=== PATIENT | male | born 1960 | race Caucasian/White ===

== ENCOUNTER 2017-01-14 03:21 | Emergency (ER) | payer MEDICARE ==
--- NOTE | ~2017-01-14 | EKG ---
PATIENT: GLENN MUNIZ UNIT #: [id number] Ventricular Rate: 88 BPM Atrial Rate: 88 BPM P-R Interval: 158 ms QRS Duration: 92 ms Q-T Interval: 356 ms QTC Calculation(Bezet): 430 ms P [place]: 45 degrees Calculated R [place]: 36 degrees Calculated T [place]: 36 degrees Diagnosis Line: Normal sinus rhythm Diagnosis Line: Possible Left atrial enlargement Diagnosis Line: Cannot rule out Anterior infarct , age Diagnosis Line: undetermined Diagnosis Line: Abnormal ECG Diagnosis Line: No previous ECGs available Diagnosis Line: Confirmed by DINA BEEBE MD ([id number]) on Diagnosis Line: 01/15/2017 8:46:44 AM INTERPRETING MD: ABIEL GARCIA
--- NOTE | ~2017-01-14 | CR72 ---
[facility] A Service of [facility] & [facility] RADIOLOGY TEXT RESULTS PATIENT: GLENN MUNIZ LOCATION: [facility] : 62 UNIT #: [id number] AGE: [address]: Mitchell Alexander SEX: M ORDER DR: [id number] [facility] [address] [place], [place] [address] [id number] E MR#: [id number] Acc #: [id number] NAME: GLENN MUNIZ : 1960 SEX: M STUDY DATE/TIME: 01/14/2017 4:40 UNIT: [facility] ROOM: STUDY DESCRIPTION: CR Chest Single View Portable Attending Physician: Mitchell Alexander Ordering Physician: Jigna Williamson M.D. Primary Care Physician: Joey Samuel M.D. MEDICAL IMAGING REPORT This report is preliminary unless electronic signature is present FINDINGS Single view chest INDICATION Chest pain for 2 weeks. Shortness of air. FINDINGS Single portable AP view of the chest compared to 07/24/2016. Heart and mediastinal contours normal. There is chronic interstitial opacities in both lungs. These are unchanged. No pneumothorax. IMPRESSION No new findings. Chronic interstitial opacities are similar to the prior study. Dictated by... Boyd Mancini M.D. THIS IS AN ELECTRONICALLY VERIFIED REPORT Boyd Mancini M.D. at 01/14/2017 9:07 PM MARIUM/anu TD: 01/14/2017 08:06 JOB #: [id number] MEDICAL IMAGING REPORT Page 1 of 1 COPY
[~2017-01-14 03:21] MED LIST: AMBIEN CR PO; FISH OIL 1,0001 CAP PO; INVEGA; LITHIUM PO; LORTAB 5/500 TA1 TA1 PO; METFORMIN PO; NEURONTIN PO; PRILOSEC PO; SEROQUEL PO
[2017-01-14 04:34] LABS: POC - CKMB 2.7 ng/mL (0.0-7.9); POC - TROPONIN <0.05 ng/mL (<=0.05)
[2017-01-14 05:15] LABS: BASOPHIL# 0.1 X10e3 (0-0.3); BASOPHIL% 0.6 % (0-2.5); EOSINOPHIL# 0.5 X10e3 (0-0.7); EOSINOPHIL% 4.5 % (0.0-7.0); HEMOGLOBIN 13.7 gm/dL (13.0-16.0); LYMPHOCYTE# 2.8 X10e3 (1.0-3.5); LYMPHOCYTE% 23.8 % (17.0-45.0); MEAN CELL VOLUME 94.5 FL (83-96); MEAN CORPUSCULAR HEMOGLOBIN 33.2 PG (28-34); MEAN CORPUSCULAR HGB CONC 35.2 g/dL (30-36); MEAN PLATELET VOLUME 7.7 FL (6.5-11.5); MONOCYTE# 0.8 X10e3 (0-1.0); MONOCYTE% 6.8 % (3.0-12.0); NEUTROPHIL# 7.6 X10e3 (1.5-7.1); NEUTROPHIL% 64.3 % (40-75); PLATELET COUNT 174 X10e3 (140-420); RED BLOOD COUNT 4.13 X10e (3.90-5.60); RED CELL DISTRIBUTION WIDTH 13.5 % (11.0-15.5); WHITE BLOOD COUNT 11.8 X10e3 (4.0-10.5)
[2017-01-14 05:16] LABS: DIFF IND NO
[2017-01-14 05:55] LABS: ALBUMIN SERUM 4.2 g/dL (3.5-5.0); BILIRUBIN,TOTAL 0.7 mg/dL (0.2-2.0); BUN/CREATININE RATIO 13.63; CALCIUM SERUM 8.8 mg/dL (8.4-10.2); CREATININE SERUM 1.1 mg/dL (0.6-1.4); GLOM FILT RATE Estimated 75.2 mL/min (>60); POTASSIUM 3.1 mmol/L (3.5-5.1); PROTEIN TOTAL SERUM 7.4 g/dL (6.0-8.3)
== END 2017-01-14 07:12 | disposition home or self-care (01) ==
LOC: CED 03:21
PROVIDERS: Nurse Practitioner
DX: S29.011A Strain of muscle and tendon of front wall of thorax, initial encounter (principal); F17.210 Nicotine dependence, cigarettes, uncomplicated; K21.9 Gastro-esophageal reflux disease without esophagitis; I10 Essential (primary) hypertension; E11.9 Type 2 diabetes mellitus without complications; Z79.4 Long term (current) use of insulin; Z79.84 Long term (current) use of oral hypoglycemic drugs; Z98.890 Other specified postprocedural states; X58.XXXA Exposure to other specified factors, initial encounter
CPT/HCPCS: 71010; 80053; 82553; 84484; 85025; 93005; 96374; 96375; 99284; J2270; J2405

== ENCOUNTER 2017-03-04 18:55 | Emergency (ER) | payer MEDICARE, OTHER ==
--- NOTE | ~2017-03-04 | EKG ---
PATIENT: GLENN MUNIZ UNIT #: [id number] Ventricular Rate: 93 BPM Atrial Rate: 93 BPM P-R Interval: 158 ms QRS Duration: 88 ms Q-T Interval: 330 ms QTC Calculation(Bezet): 410 ms P [place]: 29 degrees Calculated R [place]: 39 degrees Calculated T [place]: 6 degrees Diagnosis Line: Normal sinus rhythm Diagnosis Line: Cannot rule out Anterior infarct (cited on or Diagnosis Line: before 14-JAN-2017) Diagnosis Line: Abnormal ECG Diagnosis Line: When compared with ECG of 14-JAN-2017 03:31, Diagnosis Line: T wave inversion now evident in Inferior leads Diagnosis Line: Confirmed by MADDIE ROSA MD ([id number]) on Diagnosis Line: 03/06/2017 10:32:05 AM INTERPRETING MD: MOE GARCIA
--- NOTE | ~2017-03-04 | CR229 ---
[facility] A Service of [facility] & [facility] RADIOLOGY TEXT RESULTS PATIENT: GLENN MUNIZ LOCATION: [facility] : 62 UNIT #: [id number] AGE: [address]: Yana Sharpe APRN SEX: M ORDER DR: [id number] [facility] [address] [place], [place] [address] [id number] E MR#: [id number] Acc #: [id number] NAME: GLENN MUNIZ : 1960 SEX: M STUDY DATE/TIME: 03/04/2017 20:06 UNIT: [facility] ROOM: STUDY DESCRIPTION: CR Shoulder Min 2 View Lt Attending Physician: Yana Sharpe A.P.R.N. Ordering Physician: Yana Sharpe A.P.R.N. Primary Care Physician: Joey Samuel M.D. MEDICAL IMAGING REPORT This report is preliminary unless electronic signature is present EXAM Left shoulder series, 03/04/2017 COMPARISON Left shoulder series dated 06/30/2015. HISTORY Left flank pain, left shoulder pain for 2 days post fall. FINDINGS Three views of the left shoulder were obtained. Small spurs and arthritic changes are suspected in the left acromioclavicular joint. Left glenohumeral joint is intact. Surrounding soft tissues do not demonstrate any significant abnormality. Dictated by... Db Marroquin M.D. THIS IS AN ELECTRONICALLY VERIFIED REPORT Db Marroquin M.D. at 03/05/2017 11:36 AM CPR/kiara TD: 03/05/2017 00:58 JOB #: [id number] MEDICAL IMAGING REPORT Page 1 of 1 COPY
--- NOTE | ~2017-03-04 | CR72 ---
[facility] A Service of [facility] & [facility] RADIOLOGY TEXT RESULTS PATIENT: GLENN MUNIZ LOCATION: [facility] : 62 UNIT #: [id number] AGE: [address]: Yana Sharpe APRN SEX: M ORDER DR: [id number] [facility] [address] [place], [place] [address] [id number] E MR#: [id number] Acc #: [id number] NAME: GLENN MUNIZ : 1960 SEX: M STUDY DATE/TIME: 03/04/2017 20:04 UNIT: [facility] ROOM: STUDY DESCRIPTION: CR Chest Single View Portable Attending Physician: Yana Sharpe A.P.R.N. Ordering Physician: Yana Sharpe A.P.R.N. Primary Care Physician: Joey Samuel M.D. MEDICAL IMAGING REPORT This report is preliminary unless electronic signature is present EXAM Single view of the chest dated 03/04/2017. COMPARISON Single-view chest dated 01/14/2017. HISTORY Left flank pain, left shoulder pain and shortness of air with activity for 2 days. FINDINGS Single view of the chest was obtained. No significant interval change when compared to the prior study from 1.5 months ago. Minimal prominence of the bronchovascular markings could be related to poor inspiration or mild interstitial lung disease, stable. No superimposed patchy dense consolidation, pleural effusion or pneumothorax. Dictated by... Db Marrouqin M.D. THIS IS AN ELECTRONICALLY VERIFIED REPORT Db Marroquin M.D. at 03/05/2017 11:36 AM CPR/psc TD: 03/05/2017 00:51 JOB #: [id number] MEDICAL IMAGING REPORT Page 1 of 1 COPY
[2017-03-04 20:11] LABS: BASOPHIL# 0.1 X10e3 (0-0.3); BASOPHIL% 0.7 % (0-2.5); EOSINOPHIL# 0.5 X10e3 (0-0.7); EOSINOPHIL% 4.5 % (0.0-7.0); HEMATOCRIT 42.4 % (38.0-50.0); HEMOGLOBIN 14.6 gm/dL (13.0-16.0); LYMPHOCYTE# 2.9 X10e3 (1.0-3.5); LYMPHOCYTE% 25.8 % (17.0-45.0); MEAN CELL VOLUME 96.1 FL (83-96); MEAN CORPUSCULAR HEMOGLOBIN 33.2 PG (28-34); MEAN CORPUSCULAR HGB CONC 34.5 g/dL (30-36); MEAN PLATELET VOLUME 7.9 FL (6.5-11.5); MONOCYTE# 0.7 X10e3 (0-1.0); MONOCYTE% 5.8 % (3.0-12.0); NEUTROPHIL# 7.1 X10e3 (1.5-7.1); NEUTROPHIL% 63.2 % (40-75); PLATELET COUNT 171 X10e3 (140-420); RED BLOOD COUNT 4.41 X10e (3.90-5.60); WHITE BLOOD COUNT 11.2 X10e3 (4.0-10.5)
[2017-03-04 20:13] LABS: DIFF IND NO
[2017-03-04 20:23] LABS: POC - TROPONIN <0.05 ng/mL (<=0.05)
[2017-03-04 20:33] LABS: ALBUMIN SERUM 4.4 g/dL (3.5-5.0); BILIRUBIN,TOTAL 0.8 mg/dL (0.2-2.0); BUN/CREATININE RATIO 16.25; CALCIUM SERUM 9.3 mg/dL (8.4-10.2); CREATININE SERUM 0.8 mg/dL (0.6-1.4); GLOM FILT RATE Estimated 100.6 mL/min (>60); PARTIAL THROMBOPLASTIN TIME 28.5 SECONDS (23.5-31.3); POTASSIUM 3.9 mmol/L (3.5-5.1); PROTEIN TOTAL SERUM 7.6 g/dL (6.0-8.3); PROTHROMBIN TIME (PATIENT) 10.7 SECONDS (10.0-11.7)
== END 2017-03-04 21:10 | disposition home or self-care (01) ==
LOC: CFTX 18:55 → CED 18:55 → CFTX 19:30
PROVIDERS: Nurse Practitioner
DX: S46.912A Strain of unspecified muscle, fascia and tendon at shoulder and upper arm level, left arm, initial encounter (principal); E11.9 Type 2 diabetes mellitus without complications; F17.210 Nicotine dependence, cigarettes, uncomplicated; S80.212A Abrasion, left knee, initial encounter; W19.XXXA Unspecified fall, initial encounter
CPT/HCPCS: 36415; 71010; 73030; 80053; 82553; 82947; 84484; 85025; 85610; 85730; 93005; 96372; 99285; J1885